=== PATIENT | male | born 1985 | race Caucasian/White ===

== ENCOUNTER 2020-04-07 14:02 | Outpatient (RCR) | payer OTHER, BC, SELFPAY | END 2020-07-06 23:59 | disposition home or self-care (01) | LOC: ANHDMC 14:02 | PROVIDERS: PCP Physician Assistant Medical; Visit Provider Physician Assistant Medical | DX: E11.65 Type 2 diabetes mellitus with hyperglycemia (principal); Z71.89 Other specified counseling | CPT/HCPCS: G0108 ==